=== PATIENT | female | born 1980 | race African-American/Black ===

== ENCOUNTER 2016-07-22 20:16 | Emergency (ER) | payer OTHER ==
[~2016-07-22 20:16] MED LIST: AMOXICILLIN500 M1 PO; BACTRIM DS TABL1 TA1 PO; BACTRIM DS TABL1 TAB PO; BACTROBAN22 GM TOP; DARVOCET-N 1001 TA1 PO; DICLOFENAC PO; ELOCON 0.1% OIN15 GM EXT; FLEXERIL PO; FLONASE 0.05% N16 G1; IBUPROFEN800 MG PO; IRON SUPPLEMENT1 TAB PO; KEFLEX PO; LORTAB 10/500 T1 TAB PO; LORTAB 5/500 TA1 TA2 PO; NO MEDICATIONS; PRENACARE TABL1 EACH PO; TRIAMCINOLONE AC1 GM EXT; VICODIN 5/500 T1 TAB PO; ZOVIRAX800 MG PO
[2016-07-22 20:38] LABS: BASOPHIL# 0.1 X10e3 (0-0.3); BASOPHIL% 0.9 % (0-2.5); EOSINOPHIL# 0.1 X10e3 (0-0.7); EOSINOPHIL% 1.2 % (0.0-7.0); HEMATOCRIT 37.2 % (35.0-45.0); HEMOGLOBIN 12.6 gm/dL (12.0-16.0); LYMPHOCYTE# 2.1 X10e3 (1.0-3.5); LYMPHOCYTE% 24.8 % (17.0-45.0); MEAN CORPUSCULAR HEMOGLOBIN 32.2 PG (28-34); MEAN CORPUSCULAR HGB CONC 33.9 g/dL (30-36); MEAN PLATELET VOLUME 7.9 FL (6.5-11.5); MONOCYTE# 0.5 X10e3 (0-1.0); MONOCYTE% 6.3 % (3.0-12.0); NEUTROPHIL# 5.7 X10e3 (1.5-7.1); NEUTROPHIL% 66.8 % (40-75); PLATELET COUNT 225 X10e3 (140-420); RED BLOOD COUNT 3.92 X10e (3.90-5.30); RED CELL DISTRIBUTION WIDTH 12.7 % (11.0-15.5); WHITE BLOOD COUNT 8.6 X10e3 (4.0-10.5)
[2016-07-22 20:39] LABS: DIFF IND NO
[2016-07-22] MEDS ORDERED: VOLTAREN75 MG (21:48)
== END 2016-07-22 21:48 | disposition home or self-care (01) ==
LOC: SED 20:16
PROVIDERS: Physician Assistant Medical
DX: N93.8 Other specified abnormal uterine and vaginal bleeding (principal); Z88.2 Allergy status to sulfonamides; Z88.8 Allergy status to other drugs, medicaments and biological substances
CPT/HCPCS: 36415; 84703; 85025; 99284